=== PATIENT | male | born 1990 | race Hispanic/Latino ===

== ENCOUNTER 2018-11-28 19:51 | Emergency (ER) | payer SELFPAY ==
[~2018-11-28] VITALS: Ht 182.9 cm; Wt 98.9 kg
[2018-11-28] MEDS ORDERED: TYLENOL COLD-F240 ML PO (20:00)
[2018-11-28] MEDS ORDERED: TAMIFLU75 MG PO (20:01)
== END 2018-11-28 21:27 | disposition home or self-care (01) ==
LOC: ED 19:51
DX: B34.9 Viral infection, unspecified (principal); Z87.891 Personal history of nicotine dependence
CPT/HCPCS: 87880; 99283